=== PATIENT | male | born 2000 | race African-American/Black ===

== ENCOUNTER 2020-02-04 00:57 | Emergency (ER) | payer BC ==
[~2020-02-04] VITALS: Ht 177.8 cm; Wt 68.0 kg
[2020-02-04 01:07] VITALS: BP 128/73
[2020-02-04] MEDS ORDERED: BACITRACIN ZIN1 EAC1 TP (01:08)
--- NOTE | 2020-02-04 01:10 | Emergency Room Report ---
History of Present Illness General Chief Complaint: Laceration Source: Patient Present Illness HPI Disclaimer: Please note that this report is being documented using [employer] technology. This can lead to erroneous entry secondary to incorrect interpretation by the dictating instrument. HPI: 19-year-old male presents for evaluation of skin tear to the right great toe. Got it caught under a door causing a small skin tear. Happened earlier the day and the flap is now reattached. Denies bleeding. Cleaned it with soap and water. No other injury reported. Ambulating without difficulty. No exacerbating or relieving factors. Tetanus up-to-date. PMH: Reviewed PSH: Reviewed Allergies: Reviewed Social Hx: Reviewed Allergies: Coded Allergies: No Known Allergies (Unverified , 02/04/20) COVID-19 Screening Contact w/high risk pt: No Experienced COVID-19 symptoms?: No COVID-19 Testing performed [employer]ER: Yes - 01/30/20 COVID-19 Screening: Negative COVID-19 COVID-19 Testing Source: [facility] Documentation-PMH Past Medical History: No Stated History Review of Systems All Other Systems: negative except mentioned in HPI Physical Exam Vital Signs Date Time Temp Pulse Resp B/P (MAP) Pulse Ox O2 Delivery O2 Flow Rate FiO2 02/04/20 00:59 98.2 63 18 128/73 (91) 99 Room Air General: Awake and alert, no acute distress HEENT: NC/AT. EOMI. Resp: Normal work of breathing Skin: Small skin tear with superficial flap reattached just below the toenail of the right great toe. No bleeding. MSK: Normal tone and bulk. Moving all extremities. No obvious deformity. Neuro: Awake and alert. Mentating appropriately Medical Decision Making Diagnostic Impression: Primary Impression: Skin tear ER Course 19-year-old male presents with superficial skin tear of the right great toe after getting caught in a door. Does not require closure. Already cleaned mema or to arrival. Bacitracin cream and bandage applied. Can return with new or worsening symptoms. Last Vital Signs Date Time Temp Pulse Resp B/P (MAP) Pulse Ox O2 Delivery O2 Flow Rate FiO2 02/04/20 00:59 98.2 63 18 128/73 (91) 99 Room Air Disposition: HOME, SELF-CARE Condition: Stable Scripts Bacitracin Zinc (Bacitracin Zinc) 1 Each Packet 1 EACH TP BID, #10 EA Prov: Kunal Olivera MD 02/04/20 Referrals: [facility] Celai Zhao. [facility] Patient Instructions: Nonsutured Laceration Care Additional Instructions: Please follow-up with your primary care doctor in the next 1 to 3 days to discuss this emergency department visit and for reevaluation. If you have any new or worsening symptoms please return to the emergency department for reev aluation. Please note that this report is being documented using [employer] technology. This can lead to erroneous entry secondary to incorrect interpretation by the dictating instrument. Kunal Olivera MD Feb 04, 2020 01:10
[2020-02-04] MEDS ORDERED: Bacitracin Oint UD TOPIC ONE (01:12)
[2020-02-04 01:17] VITALS: BP 128/73
== END 2020-02-04 01:17 | disposition home or self-care (01) ==
LOC: EMR 01:07
DX: S91.111A Laceration without foreign body of right great toe without damage to nail, initial encounter (principal); W23.0XXA Caught, crushed, jammed, or pinched between moving objects, initial encounter; Y93.9 Activity, unspecified; Y92.9 Unspecified place or not applicable
CPT/HCPCS: 99282